=== PATIENT | female | born 1995 | race African-American/Black ===

== ENCOUNTER 2020-10-11 06:30 | Emergency (ER) | payer MEDICAID ==
[~2020-10-11] VITALS: Ht 170.2 cm; Wt 57.0 kg
[2020-10-11 08:00] VITALS: BP 123/80
== END 2020-10-11 08:04 | disposition left against medical advice (07) ==
LOC: ER 06:30
DX: Z53.21 Procedure and treatment not carried out due to patient leaving prior to being seen by health care provider (principal)